=== PATIENT | female | born 1990 | race Caucasian/White ===

== ENCOUNTER 2016-09-19 19:35 | Emergency (ER) | payer BC ==
[2016-09-19 19:55] VITALS: TEMP 97.9
[2016-09-19] MEDS ORDERED: SODIUM CHLORIDE 0.9% 1,000 ML IV STA (20:06)
--- NOTE | 2016-09-19 20:10 | ED ---
Abdominal Pain HPI - General Chief Complaint: Abdominal Pain Stated Complaint: abdominal pain Time Seen by Provider: 09/19/16 19:58 Source: patient, RN notes reviewed Mode of arrival: ambulatory Limitations: no limitations - History of Present Illness Initial Comments: 25-year-old female presents to the emergency department with a chief complaint of right upper quadrant abdominal pain. Patient states that she has had this pain on and off the past few weeks. She went to medics breast be informed her it might be her gallbladder and told to follow-up with her doctor. She states she may limit for Sunday but she was concerned due to the continued pain so she thought that she should be seen. Patient denies any radiation to the shoulder. Patient states the right upper quadrant. Patient states by see or greasy food seems to make it worse. Patient denies any nausea vomiting fever chills with this. Patient states she was concerned due to the continued pain so she thought that she should be seen. Patient denies any recent fever, chills, shortness of breath, chest pain, back pain, nausea vomiting, numbness or tingling, dysuria or hematuria, constipation or diarrhea, headaches or visual changes, or any other current symptoms. - Related Data Home Medications Medication Instructions Recorded Confirmed Norgestimate-Ethinyl Estradiol 1 tab PO DAILY 09/19/16 09/19/16 [Tri-Sprintec Tablet] Allergies Allergy/AdvReac Type Severity Reaction Status Date / Time No Known Allergies Allergy Verified 09/19/16 20:30 Review of Systems ROS Statement: Those systems with pertinent positive or pertinent negative responses have been documented in the HPI. ROS Other: All systems not noted in ROS Statement are negative. Past Medical History Past Medical History: No Reported History History of Any Multi-Drug Resistant Organisms: None Reported Past Surgical History: No Surgical Hx Reported Past Psychological History: No Psychological Hx Reported Smoking Status: Never smoker Past Alcohol Use History: Occasional Past Drug Use History: None Reported General Exam - General Exam Comments Initial Comments: General: The patient is awake and alert, in no distress, and does not appear acutely ill. Eye: Pupils are equal, round and reactive to light, extra-ocular movements are intact; there is normal conjunctiva bilaterally. No signs of icterus. Ears, nose, mouth and throat: There are moist mucous membranes and no oral lesions. Neck: The neck is supple, there is no tenderness. Cardiovascular: There is a regular rate and rhythm. No murmur, rub or gallop is appreciated. Respiratory: Lungs are clear to auscultation, respirations are non-labored, breath sounds are equal. No wheezes, stridor, rales, or rhonchi. Gastrointestinal: Soft, non-distended, non-tender abdomen without masses or organomegaly noted. There is no rebound or guarding present. No CVA tenderness. Bowel sounds are unremarkable. Back: There is no tenderness to palpation in the midline. There is no obvious deformity. No rashes noted. Musculoskeletal: Normal ROM, no tenderness, There is no pedal edema. There is no calf tenderness or swelling. Sensation intact. Pulses equal bilaterally 2+. Neurological: CN II-XII intact, There are no obvious motor or sensory deficits. Coordination appears grossly intact. Speech is normal. Skin: Skin is warm and dry and no rashes or lesions are noted. Psychiatric: Cooperative, appropriate mood & affect, normal judgment. Limitations: no limitations Course Vital Signs 09/19/16 09/19/16 19:52 20:55 Temperature 97.9 F Pulse Rate 60 88 Respiratory 18 16 Rate Blood Pressure 120/79 151/87 O2 Sat by Pulse 100 100 Oximetry Medical Decision Making - Medical Decision Making 25-year-old female presents emergency Department chief complaint of abdominal pain. At this time lab work is reviewed as well as the ultrasound. This time we discussed continued follow-up outpatient. Discussed return parameters all questions. He stated he understood the plan. They will be discharged. - Lab Data Result diagrams: 09/19/16 20:45 09/19/16 20:45 Lab Results 09/19/16 09/19/16 09/19/16 Range/Units 20:45 20:45 20:45 WBC 7.0 (3.8-10.6) k/uL RBC 4.91 (3.80-5.40) m/uL Hgb 14.2 (11.4-16.0) gm/dL Hct 42.9 (34.0-46.0) % MCV 87.4 (80.0-100.0) fL MCH 28.9 (25.0-35.0) pg MCHC 33.1 (31.0-37.0) g/dL RDW 13.4 (11.5-15.5) % Plt Count 245 (150-450) k/uL Neutrophils % 62 % Lymphocytes % 28 % Monocytes % 6 % Eosinophils % 1 % Basophils % 1 % Neutrophils # 4.3 (1.3-7.7) k/uL Lymphocytes # 2.0 (1.0-4.8) k/uL Monocytes # 0.4 (0-1.0) k/uL Eosinophils # 0.1 (0-0.7) k/uL Basophils # 0.1 (0-0.2) k/uL Sodium 140 (137-145) mmol/L Potassium 3.7 (3.5-5.1) mmol/L Chloride 106 (98-107) mmol/L Carbon Dioxide 25 (22-30) mmol/L Anion Gap 9 mmol/L BUN 12 (7-17) mg/dL Creatinine 0.87 (0.52-1.04) mg/dL Est GFR (MDRD) Af Amer >60 (>60 ml/min/1.73 sqM) Est GFR (MDRD) Non-Af >60 (>60 ml/min/1.73 sqM) Glucose 69 L (74-99) mg/dL Calcium 9.6 (8.4-10.2) mg/dL Total Bilirubin 0.5 (0.2-1.3) mg/dL AST 21 (14-36) U/L ALT 19 (9-52) U/L Alkaline Phosphatase 46 (38-126) U/L Total Protein 7.7 (6.3-8.2) g/dL Albumin 4.4 (3.5-5.0) g/dL Amylase 50 (30-110) U/L Lipase 160 (23-300) U/L Urine Color Urine Appearance (Clear) Urine pH (5.0-8.0) Ur Specific [place] (1.001-1.035) Urine Protein (Negative) Urine Glucose (UA) (Negative) Urine Ketones (Negative) Urine Blood (Negative) Urine Nitrite (Negative) Urine Bilirubin (Negative) Urine Urobilinogen (<2.0) mg/dL Ur Leukocyte Esterase (Negative) Urine RBC (0-5) /hpf Urine WBC (0-5) /hpf Ur Squamous Epith Cells (0-4) /hpf Urine Mucus (None) /hpf Urine HCG, Qual Not Detected (Not Detectd) 05/30/17 Range/Units 20:45 WBC (3.8-10.6) k/uL RBC (3.80-5.40) m/uL Hgb (11.4-16.0) gm/dL Hct (34.0-46.0) % MCV (80.0-100.0) fL MCH (25.0-35.0) pg MCHC (31.0-37.0) g/dL RDW (11.5-15.5) % Plt Count (150-450) k/uL Neutrophils % % Lymphocytes % % Monocytes % % Eosinophils % % Basophils % % Neutrophils # (1.3-7.7) k/uL Lymphocytes # (1.0-4.8) k/uL Monocytes # (0-1.0) k/uL Eosinophils # (0-0.7) k/uL Basophils # (0-0.2) k/uL Sodium (137-145) mmol/L Potassium (3.5-5.1) mmol/L Chloride (98-107) mmol/L Carbon Dioxide (22-30) mmol/L Anion Gap mmol/L BUN (7-17) mg/dL Creatinine (0.52-1.04) mg/dL Est GFR (MDRD) Af Amer (>60 ml/min/1.73 sqM) Est GFR (MDRD) Non-Af (>60 ml/min/1.73 sqM) Glucose (74-99) mg/dL Calcium (8.4-10.2) mg/dL Total Bilirubin (0.2-1.3) mg/dL AST (14-36) U/L ALT (9-52) U/L Alkaline Phosphatase (38-126) U/L Total Protein (6.3-8.2) g/dL Albumin (3.5-5.0) g/dL Amylase (30-110) U/L Lipase (23-300) U/L Urine Color Yellow Urine Appearance Clear (Clear) Urine pH 5.5 (5.0-8.0) Ur Specific [place] 1.026 (1.001-1.035) Urine Protein Trace H (Negative) Urine Glucose (UA) Negative (Negative) Urine Ketones Negative (Negative) Urine Blood Negative (Negative) Urine Nitrite Negative (Negative) Urine Bilirubin Negative (Negative) Urine Urobilinogen 2.0 (<2.0) mg/dL Ur Leukocyte Esterase Moderate H (Negative) Urine RBC 2 (0-5) /hpf Urine WBC 5 (0-5) /hpf Ur Squamous Epith Cells 2 (0-4) /hpf Urine Mucus Few H (None) /hpf Urine HCG, Qual (Not Detectd) - Radiology Data Radiology results: report reviewed, image reviewed Disposition Clinical Impression: Right upper quadrant abdominal pain Disposition: HOME SELF-CARE Condition: Stable Instructions: Abdominal Pain (ED) Additional Instructions: Please use medication as discussed. Please follow up with family doctor if symptoms have not improved over the next two days. Please return to the emergency room if your symptoms increase or worsen or for any other concerns. Referrals: None,Stated [Primary Care Provider] - 1-2 days Robin Grider MD [STAFF PHYSICIAN] - 1-2 days Time of Disposition: 22:09
[2016-09-19 21:09] LABS: Basophils # (A) 0.1 k/uL (0-0.2); Basophils % (A) 1 %; CH 28.8; CHCM 33.1; Eosinophils # (A) 0.1 k/uL (0-0.7); Eosinophils % (A) 1 %; HCT 42.9 % (34.0-46.0); HGB 14.2 gm/dL (11.4-16.0); Luc # (Auto) 0.11; Luc % (Auto) 2; Lymphocytes % (A) 28 %; MCH 28.9 pg (25.0-35.0); MCHC 33.1 g/dL (31.0-37.0); MCV 87.4 fL (80.0-100.0); Mean Platelet Volume 7.7; Monocytes # (A) 0.4 k/uL (0-1.0); Monocytes % (A) 6 %; Neutrophils # (A) 4.3 k/uL (1.3-7.7); Neutrophils % (A) 62 %; RBC 4.91 m/uL (3.80-5.40); RDW 13.4 % (11.5-15.5); WBC (Perox) 7.17
[2016-09-19 21:18] LABS: Appearance,Urine Clear (Clear); Bilirubin,Urine Negative (Negative); Glucose,Urine (UA) Negative (Negative); Ketones,Urine Negative (Negative); Leukocyte Esterase,Urine Moderate (Negative); Mucus,Urine Few /hpf; Nitrite,Urine Negative (Negative); PH, Urine 5.5 (5.0-8.0); Particle Count 7168; Protein,Urine Trace (Negative); RBC,Urine 2 /hpf (0-5); Specific Gravity,Urine 1.026 (1.001-1.035); Squamous Epithelial Cell,Urine 2 /hpf (0-4); UA Billing (MACRO vs. MICRO) MICRO; WBC,Urine 5 /hpf (0-5)
[2016-09-19 21:19] LABS: ALT 19 U/L (9-52); AST 21 U/L (14-36); Alkaline Phosphatase 46 U/L (38-126); Amylase 50 U/L (30-110); Anion Gap 9 mmol/L; Blood Urea Nitrogen 12 mg/dL (7-17); Calcium 9.6 mg/dL (8.4-10.2); Carbon Dioxide 25 mmol/L (22-30); Chloride 106 mmol/L (98-107); Glucose 69 mg/dL (74-99); Non-African American GFR(MDRD) >60 (>60 ml/min/1.73 sqM); Potassium 3.7 mmol/L (3.5-5.1); Sodium 140 mmol/L (137-145); Total Bilirubin 0.5 mg/dL (0.2-1.3); Total Protein 7.7 g/dL (6.3-8.2)
[2016-09-19 21:53] VITALS: BP 151/87; PULSE 88; RESP 16
--- NOTE | 2016-09-19 22:01 | US ---
EXAMINATION TYPE: US gallbladder DATE OF EXAM: 09/19/2016 COMPARISON: NONE CLINICAL HISTORY: RUQ Pain, worse after eating. Patient is not NPO at time of exam- ate about 2 hours ago EXAM MEASUREMENTS: Liver Length: 16.5 cm Gallbladder Wall: 0.2 cm CBD: 0.3 cm Right Kidney: 10.1 x 3.9 x 4.7 cm Pancreas: Tail obscured by overlying bowel gas, visualized portions wnl Liver: wnl Gallbladder: Contracted. No stones visualized Evidence for sonographic Armas's sign: No CBD: wnl Right Kidney: No hydronephrosis or masses seen IMPRESSION: 1. Unremarkable right upper quadrant ultrasound. 2. Gallbladder is contracted which may accentuate the wall thickness.
--- NOTE | 2016-09-19 22:03 | XR ---
EXAMINATION TYPE: XR abdomen 2V DATE OF EXAM: 09/19/2016 COMPARISON: NONE INDICATION: Pain right upper quadrant TECHNIQUE: Upright and supine views abdomen FINDINGS: There is a normal bowel gas pattern. Psoas margins are normal. No organomegaly is present. IMPRESSION: 1. Unremarkable Abdomen
== END 2016-09-19 22:39 | disposition home or self-care (01) ==
LOC: EC 19:35
DX: R10.11 Right upper quadrant pain (principal); Z79.3 Long term (current) use of hormonal contraceptives
CPT/HCPCS: 36415; 74020; 76705; 80053; 81001; 81025; 82150; 83690; 85025; 96360; 99284

== ENCOUNTER → 2016-09-25 | Outpatient (CLI) | payer BC ==
[2016-09-25 11:47] LABS: Amylase 53 U/L (30-110)
[2016-09-26 12:58] LABS: Mis test requested (Blood) H. pylori IgM
[2016-09-26 12:59] LABS: Mis test result (Blood) Test discontinued
== END | disposition home or self-care (01) ==
LOC: LABWHC1 10:53
PROVIDERS: ATTEND Internal Medicine
DX: R10.9 Unspecified abdominal pain (principal); K29.70 Gastritis, unspecified, without bleeding
CPT/HCPCS: 36415; 82150; 83690; 86677

== ENCOUNTER 2017-10-28 21:03 | Emergency (ER) | payer BC ==
[2017-10-28 21:26] VITALS: BP 140/86; PULSE 56; RESP 18; TEMP 98.3
[2017-10-28] MEDS ORDERED: CEPHALEXIN 500MG STARTER PACK 4 CAP BTL PO STA (23:04)
[2017-10-28] MEDS ORDERED: MUPIROCIN 2% OINT 22 GM TUBE TOPICAL SCH (23:15)
--- NOTE | 2017-10-28 23:17 | ED ---
General Adult HPI - General Chief complaint: Skin/Abscess/Foreign Body Stated complaint: Foot pain Time Seen by Provider: 10/28/17 22:37 Source: patient, family, RN notes reviewed Mode of arrival: ambulatory Limitations: no limitations - History of Present Illness Initial comments: Chief complaint history of present illness this is a 26-year-old female with complaint of having cut herself superficially [place] the [place] 4 [place]. There was a localized blister. It since opened. She has mild redness but has also developed mild lymphangitic streaking on the dorsal surface of her left foot. Full range of motion. No crepitus. No evidence of any embedded foreign body. - Related Data Home Medications Medication Instructions Recorded Confirmed Norgestimate-Ethinyl Estradiol 1 tab PO DAILY 09/19/16 09/19/16 [Tri-Sprintec Tablet] Previous Rx's Medication Instructions Recorded Cephalexin [Keflex] 500 mg PO Q6HR #28 cap 10/28/17 Mupirocin 2% Oint [Bactroban 2% 1 applic TOPICAL TID #22 gm 10/28/17 Oint] Allergies Allergy/AdvReac Type Severity Reaction Status Date / Time No Known Allergies Allergy Verified 10/28/17 21:26 Review of Systems ROS Statement: Those systems with pertinent positive or pertinent negative responses have been documented in the HPI. Review of systems no other complaints other than her left foot presenting as described above. Family history negative. Personal history negative. No surgeries. No ALLERGIES. Nonsmoker drink alcohol rarely socially. ROS Other: All systems not noted in ROS Statement are negative. Past Medical History Past Medical History: No Reported History History of Any Multi-Drug Resistant Organisms: None Reported Past Surgical History: No Surgical Hx Reported Past Psychological History: No Psychological Hx Reported Smoking Status: Never smoker Past Alcohol Use History: Occasional Past Drug Use History: None Reported General Exam - General Exam Comments Initial Comments: Physical exam Pertinent to the patient's visit the patient presents with an area where a blister had opened on the plantar surface of her left foot. Just below the fifth toe. She also has lymphangitic streaking of the dorsal surface of the left foot. No other complaints no other problems. Vital signs temperature 98.3 pulse 56 respiratory rate 18 pulse ox 90% room air blood pressure 140/86. Patient reports her tetanus shots are up-to-date. Limitations: no limitations Course Vital Signs 10/28/17 21:23 Temperature 98.3 F Pulse Rate 56 L Respiratory 18 Rate Blood Pressure 140/86 O2 Sat by Pulse 98 Oximetry Medical Decision Making - Medical Decision Making Medical decision-making. The patient presents with a blister that is open resulting in mild early lymphangitic streaking on the dorsal surface of her left foot. The area was cleaned on the bottom of the foot. Bactroban was applied. The patient was given first dose of cephalexin emergency room. She' ll be discharged home and advised to clean the wound daily. Apply Bactroban ointment to the open area twice a day. Take cephalexin 500 4 times a day for the next week. Soak her foot in warm water as needed. Follow-up with family physician return emergency room as needed. Disposition Clinical Impression: Acute lymphangitis of foot Disposition: HOME SELF-CARE Condition: Fair Instructions: Lymphangitis (ED) Additional Instructions: Apply Bactroban twice daily. Take cephalexin until complete. Warm soaks as needed. Cover the open area on the bottom of the foot. Do not go barefoot or place barefoot and dirty shoes. Follow-up with family physician return emergency room as needed Prescriptions: Cephalexin [Keflex] 500 mg PO Q6HR #28 cap Mupirocin 2% Oint [Bactroban 2% Oint] 1 applic TOPICAL TID #22 gm Is patient prescribed a controlled substance at d/c from ED?: No Referrals: Lyndsay Estrada MD [Primary Care Provider] - 1-2 days Time of Disposition: 23:17
[2017-10-28] MEDS ORDERED: DIPH,PERTUS(ACELL)TETVAC-LF 0.5 ML VIAL IM ONE (23:25)
== END 2017-10-28 23:46 | disposition home or self-care (01) ==
LOC: EC 21:03
DX: I89.1 Lymphangitis (principal); S90.425A Blister (nonthermal), left lesser toe(s), initial encounter; Z79.3 Long term (current) use of hormonal contraceptives; Z23 Encounter for immunization; W45.8XXA Other foreign body or object entering through skin, initial encounter; Y92.832 Beach as the place of occurrence of the external cause
CPT/HCPCS: 90471; 90715; 99283

== ENCOUNTER 2019-07-14 19:57 | Emergency (ER) | payer BC, OTHER ==
[2019-07-14 20:00] VITALS: RESP 18; TEMP 98.6
[2019-07-14] MEDS ORDERED: LIDOCAINE 1% INJ 10MG/ML (20 ML MDV) SQ STA (20:03)
[2019-07-14] MEDS ORDERED: GELATIN SPONGE,ABSORB (LARGE) 1 EACH SPONGE TOPICAL STA (20:04)
--- NOTE | 2019-07-14 20:23 | ED ---
General Adult HPI - General Chief complaint: Wound/Laceration Stated complaint: [facility] Finger Lac Time Seen by Provider: 07/14/19 20:00 Source: patient, RN notes reviewed, old records reviewed Mode of arrival: ambulatory Limitations: no limitations - History of Present Illness Initial comments: 28-year-old female patient presents to ED for evaluation of laceration to second digit of left hand. Patient reports that she was cutting cooked chicken with a knife when the knife slipped causing a partial amputation of the distal aspect of her finger through the nail. States the tetanus is up-to-date within the last few years. Denies any other complaints at this time. Denies any cough congestion fever crown virus exposure, denies any chance of being . Systemic: Pt denies fatigue, fever/chills, rash. Pt denies weakness, night sweats, weight loss. Neuro: Pt denies headache, visual disturbances, syncope or pre-syncope. HEENT: Pt denies ocular discharge or irritation, otalgia, rhinorrhea, pharyngitis or notable lymphadenopathy. Cardiopulmonary: Pt denies chest pain, SOB, heart palpitations, dyspnea on exertion. Abdominal/GI: Pt denies abdominal pain, n/v/d. : Pt denies dysuria, burning w/ urination, frequency/urgency. Denies new onset urinary or bowel incontinence. MSK: Pt denies myalgia, loss of strength or function in extremities. Neuro: Pt denies new onset weakness, paresthesias. - Related Data Home Medications Medication Instructions Recorded Confirmed Norgestimate-Ethinyl Estradiol 1 tab PO DAILY 09/19/16 09/19/16 [Tri-Sprintec Tablet] Previous Rx's Medication Instructions Recorded Cephalexin [Keflex] 500 mg PO Q6HR #28 cap 10/28/17 Mupirocin 2% Oint [Bactroban 2% 1 applic TOPICAL TID #22 gm 10/28/17 Oint] Allergies Allergy/AdvReac Type Severity Reaction Status Date / Time No Known Allergies Allergy Verified 10/28/17 21:26 Review of Systems ROS Statement: Those systems with pertinent positive or pertinent negative responses have been documented in the HPI. ROS Other: All systems not noted in ROS Statement are negative. Past Medical History Past Medical History: No Reported History History of Any Multi-Drug Resistant Organisms: None Reported Past Surgical History: No Surgical Hx Reported Past Psychological History: No Psychological Hx Reported Smoking Status: Never smoker Past Alcohol Use History: Occasional Past Drug Use History: None Reported General Exam - General Exam Comments Initial Comments: Constitutional: NAD, AOX3, Pt has pleasant affect. HEENT: NC/AT, trachea midline, neck supple, no lymphadenopathy. Posterior pharynx non erythematous, without exudates. External ears appear normal, without discharge. Mucous membranes moist. Eyes PERRLA, EOM intact. There is no scleral icterus. No pallor noted. Cardiopulmonary: RRR, no murmurs, rubs or gallops, no JVD noted. Lungs CTAB in anterior and posterior yung. No peripheral edema. Abdominal exam: Abdomen soft and non-distended. Abdomen non-tender to palpation in all 4 quadrants. Bowel sounds active in LLQ. No hepatosplenomegaly. No ecchymosis Neuro: CN II-XII grossly intact. No nuchal rigidity. No raccon eyes, no daugherty sign, no hemotympanum. No cervical spinal tenderness. MSK: Partial amputation noted to the distal aspect second digit left hand. This does involve the lateral aspect of the nail. No osseous involvement. No foreign body. Vigorously irrigated hemostasis achieved with Gelfoam. Full active range of motion of digit. Neurovascularly intact. No posterior calf tenderness bilaterally, homans sign negative bilaterally. Posterior tibialis and radial pulse +2 bilaterally. Sensation intact in upper and lower extremities. Full active ROM in upper and lower extremities, 5/5 stregnth. Limitations: no limitations Course Vital Signs 07/14/19 19:57 Temperature 98.6 F Pulse Rate 112 H Respiratory 18 Rate Blood Pressure 156/103 O2 Sat by Pulse 98 Oximetry Medical Decision Making - Medical Decision Making 28-year-old female patient presents to ED for evaluation of laceration to second digit of left hand. Patient reports that she was cutting cooked chicken with a knife when the knife slipped causing a partial amputation of the distal aspect of her finger through the nail. States the tetanus is up-to-date within the last few years. Denies any other complaints at this time. Denies any cough congestion fever crown virus exposure, denies any chance of being . Patient also signs stable, afebrile. Physical exam displayed:Partial amputation noted to the distal aspect second digit left hand. This does involve the lateral aspect of the nail. No osseous involvement. No foreign body. Vigorously irrigated hemostasis achieved with Gelfoam. Full active range of motion of digit. Neurovascularly intact. Vein films. Laceration deformity but no osseous process. Patient be discharged with follow-up with primary care provider and orthopedic consult tomorrow. Case discussed with Dr. Montero. Disposition Clinical Impression: Laceration Disposition: HOME SELF-CARE Condition: Stable Instructions (If sedation given, give patient instructions): Laceration (ED) Additional Instructions: Leave Gelfoam on, may get wet after 24 hours and will fall off on its on. Keep Area clean, Bandaged with Gauzed. Monitor for Signs and Symptoms of Infection Including: Redness, Drainage, Worsening Pain. Follow up with Primary Care Provider and orthopedic consult tomorrow. Return to ER If Condition Worsens. Is patient prescribed a controlled substance at d/c from ED?: No Referrals: None,Stated [Primary Care Provider] - 1-2 days Noe Santiago MD [Medical Doctor] - 1-2 days
[2019-07-14] MEDS ORDERED: ACET/COD 300 MG/30 MG STARTER PACK 6 TAB BTL PO STA (20:24)
--- NOTE | 2019-07-14 20:52 | XR ---
EXAMINATION TYPE: XR finger LT DATE OF EXAM: 07/14/2019 COMPARISON: NONE HISTORY: Laceration injury with pain. TECHNIQUE: 3 views left second finger are acquired. FINDINGS: No acute fracture or dislocation is evident. Joint spaces are preserved. Overlying soft tis dominik shows no suspicious radiodense foreign body. IMPRESSION: As above.
[2019-07-14 21:03] VITALS: BP 130/89; PULSE 90
== END 2019-07-14 21:05 | disposition home or self-care (01) ==
LOC: EC 19:57
DX: S61.311A Laceration without foreign body of left index finger with damage to nail, initial encounter (principal); Z79.3 Long term (current) use of hormonal contraceptives; W26.0XXA Contact with knife, initial encounter; Y93.G1 Activity, food preparation and clean up; Y92.69 Other specified industrial and construction area as the place of occurrence of the external cause; Y99.0 Civilian activity done for income or pay
CPT/HCPCS: 73140; 99283; J2001

== ENCOUNTER 2020-04-10 23:34 | Emergency (ER) | payer BC ==
--- NOTE | 2020-04-11 00:08 | ED ---
Chest Pain HPI - General Chief Complaint: Chest Pain Stated Complaint: Chest Pressure Time Seen by Provider: 04/10/20 23:44 Source: patient, family Mode of arrival: ambulatory Limitations: no limitations - History of Present Illness Initial Comments: This patient is 29-year-old woman who presents to be evaluated for a chest tightness which comes on when she is exerting or when she is exposed to cold air. The patient did have coronal virus, and had been off for 2 weeks and then had gone back to work and finds that when she is on her feet for long periods or exerting she does get winded. No anginal equivalents. No symptoms currently MD Complaint: chest pain -: days(s) Onset: during exertion, other (Cold air exposure) Pain Location: substernal Pain Radiation: none Severity: mild Quality: tightness Consistency: intermittent Improves With: nothing Worsens With: exertion, other (Cold there) Treatments Prior to Arrival: none - Related Data Home Medications Medication Instructions Recorded Confirmed Norgestimate-Ethinyl Estradiol 1 tab PO DAILY 09/19/16 09/19/16 [Tri-Sprintec Tablet] Previous Rx's Medication Instructions Recorded Cephalexin [Keflex] 500 mg PO Q6HR #28 cap 10/28/17 Mupirocin 2% Oint [Bactroban 2% 1 applic TOPICAL TID #22 gm 10/28/17 Oint] Allergies Allergy/AdvReac Type Severity Reaction Status Date / Time No Known Allergies Allergy Verified 04/10/20 23:41 Review of Systems ROS Statement: Those systems with pertinent positive or pertinent negative responses have been documented in the HPI. ROS Other: All systems not noted in ROS Statement are negative. Constitutional: Denies: fever, chills Respiratory: Reports: dyspnea. Denies: cough, wheezes, hemoptysis Cardiovascular: Reports: chest pain, dyspnea on exertion. Denies: palpitations, orthopnea, edema, syncope Gastrointestinal: Denies: abdominal pain, nausea, vomiting Genitourinary: Denies: dysuria, hematuria Musculoskeletal: Denies: back pain Skin: Denies: rash Neurological: Denies: headache, weakness, numbness EKG Findings - EKG Results: EKG: interpreted by LENNIE, WNL, sinus rhythm (Rate 73 bpm), normal axis, normal QRS, normal ST/T, no acute changes - AK, Pacemaker, Normal: Normal tracing: normal tracing Past Medical History Past Medical History: No Reported History History of Any Multi-Drug Resistant Organisms: None Reported Past Surgical History: No Surgical Hx Reported Past Psychological History: No Psychological Hx Reported Smoking Status: Never smoker Past Alcohol Use History: Occasional Past Drug Use History: None Reported General Exam Limitations: no limitations General appearance: alert, in no apparent distress Head exam: Present: atraumatic, normocephalic Eye exam: Present: normal appearance. Absent: scleral icterus, conjunctival injection ENT exam: Present: normal oropharynx Neck exam: Present: normal inspection, full ROM Respiratory exam: Present: normal lung sounds bilaterally. Absent: respiratory distress, wheezes, rales, rhonchi, accessory muscle use, decreased breath sounds, prolonged expiratory Cardiovascular Exam: Present: regular rate, normal rhythm, normal heart sounds. Absent: systolic murmur, diastolic murmur, rubs, gallop GI/Abdominal exam: Present: soft. Absent: distended, tenderness, guarding, rebound, rigid, mass Extremities exam: Present: normal inspection, normal capillary refill. Absent: pedal edema, calf tenderness Back exam: Present: normal inspection. Absent: CVA tenderness (R), CVA tenderness (L) Neurological exam: Present: alert Skin exam: Present: warm, dry, intact, normal color. Absent: rash Course Vital Signs 04/10/20 04/11/20 23:37 01:10 Temperature 98.6 F 98.2 F Pulse Rate 77 71 Respiratory 22 18 Rate Blood Pressure 168/95 123/82 O2 Sat by Pulse 99 97 Oximetry Disposition Clinical Impression: Chest pain Disposition: HOME SELF-CARE Condition: Good Instructions (If sedation given, give patient instructions): Chest Pain (ED) Is patient prescribed a controlled substance at d/c from ED?: No Referrals: None,Stated [Primary Care Provider] - 1-2 days
[2020-04-11 00:25] LABS: Basophils % (A) 0 %; Eosinophils # (A) 0.1 k/uL (0-0.7); Eosinophils % (A) 2 %; HGB 14.7 gm/dL (11.4-16.0); Lymphocytes # (A) 2.2 k/uL (1.0-4.8); Lymphocytes % (A) 36 %; MCH 28.2 pg (25.0-35.0); MCHC 33.3 g/dL (31.0-37.0); MCV 84.6 fL (80.0-100.0); Mean Platelet Volume 6.8; Monocytes # (A) 0.4 k/uL (0-1.0); Monocytes % (A) 6 %; Neutrophils # (A) 3.3 k/uL (1.3-7.7); Neutrophils % (A) 54 %; Platelet Count 340 k/uL (150-450); RBC 5.21 m/uL (3.80-5.40); RDW 13.2 % (11.5-15.5); WBC 6.1 k/uL (3.8-10.6)
--- NOTE | 2020-04-11 00:28 | XR ---
EXAM: XR Chest, 2 Views CLINICAL HISTORY: ITS.REASON XR Reason: Chest Pain TECHNIQUE: Frontal and lateral views of the chest. COMPARISON: No relevant prior studies available. FINDINGS: Lungs: Unremarkable. Pleural space: Unremarkable. Heart: Unremarkable. Mediastinum: Unremarkable. Bones/joints: Unremarkable. IMPRESSION: Normal chest x-rays.
[2020-04-11 00:35] LABS: ALT 19 U/L (4-34); AST 29 U/L (14-36); African American GFR (CKD) >90 (>60 ml/min/1.73 sqM); Albumin 4.8 g/dL (3.5-5.0); Alkaline Phosphatase 66 U/L (38-126); Anion Gap 7 mmol/L; Blood Urea Nitrogen 12 mg/dL (7-17); Calcium 10.1 mg/dL (8.4-10.2); Carbon Dioxide 25 mmol/L (22-30); Chloride 108 mmol/L (98-107); Glucose 96 mg/dL (74-99); Magnesium 2.1 mg/dL (1.6-2.3); Non-African American GFR(CKD) >90 (>60 ml/min/1.73 sqM); Potassium 3.7 mmol/L (3.5-5.1); Sodium 140 mmol/L (137-145); Total Bilirubin 0.3 mg/dL (0.2-1.3); Total Protein 8.5 g/dL (6.3-8.2)
[2020-04-11 00:50] LABS: D-Dimer 0.25 mg/L FEU (<0.60); INR 0.9 (<1.2); Partial Thromboplastin Time 23.8 sec (22.0-30.0); Prothrombin Time 9.8 sec (9.0-12.0)
[2020-04-11 01:11] VITALS: BP 123/82; PULSE 71; RESP 18; TEMP 98.2
[2020-04-11 01:24] LABS: Appearance,Urine Clear (Clear); Color,Urine Yellow; Glucose,Urine (UA) Negative (Negative); Ketones,Urine Negative (Negative); PH, Urine 5.5 (5.0-8.0); Protein,Urine Negative (Negative); Specific Gravity,Urine 1.019 (1.001-1.035)
[2020-04-11 01:25] LABS: Bilirubin,Urine Negative (Negative); Blood,Urine Moderate (Negative); Leukocyte Esterase,Urine Negative (Negative); Nitrite,Urine Negative (Negative); Urobilinogen,Urine <2.0 mg/dL (<2.0)
[2020-04-11 01:36] LABS: Amorphous Sediment,Urine Rare /hpf; Squamous Epithelial Cell,Urine 1 /hpf (0-4)
== END 2020-04-11 01:11 | disposition home or self-care (01) ==
LOC: EC 23:34
DX: R07.9 Chest pain, unspecified (principal); Z79.3 Long term (current) use of hormonal contraceptives
CPT/HCPCS: 36415; 71046; 80053; 81001; 81025; 83735; 83880; 84484; 85025; 85379; 85610; 85730; 93005; 99285